=== PATIENT | female | born 1985 | race Caucasian/White ===

== ENCOUNTER 2017-05-07 14:42 | Emergency (ER) | payer OTHER ==
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
[2017-05-07] MEDS ORDERED: TDAP ADULT 0.5 ML INJ (BOOSTRIX) IM ONE (16:12)
[2017-05-07 16:23] VITALS: BP 119/76; PULSE 81; RESP 16; TEMP 98.8; O2SAT 97
== END 2017-05-07 16:22 | disposition home or self-care (01) ==
DX: S41.111A Laceration without foreign body of right upper arm, initial encounter (principal); V18.0XXA Pedal cycle driver injured in noncollision transport accident in nontraffic accident, initial encounter; Y93.55 Activity, bike riding